=== PATIENT | male | born 1975 | race Hispanic/Latino ===

== ENCOUNTER 2017-03-28 08:51 | Emergency (ER) | payer OTHER ==
[2017-03-28] MEDS ORDERED: SODIUM CHLORIDE 0.9% 1000ML 1,000 ML IV ONE (09:04)
[2017-03-28] MEDS ORDERED: ONDANSETRON HCL 4 MG/2 ML VIAL ONE (09:04)
[2017-03-28 09:11] LABS: BASOPHILS % (AUTO) 0.3 % (0.0-5.0); MEAN CORPUSCULAR HEMOGLOBIN 30.3 pg (27.0-33.0); MEAN CORPUSCULAR HGB CONC 36.1 g/dL (32.0-36.0); MEAN CORPUSCULAR VOLUME 83.8 fL (79-99); MONOCYTES % (AUTO) 4.5 % (3.0-13.0); NEUTROPHILS % (AUTO) 88.2 % (40.0-77.0); NUCLEATED RED BLOOD CELLS 0.2 % (0.0-0.19); PLATELET COUNT (AUTO) 94 K/uL (130-400); RED BLOOD CELL COUNT(AUTO) 5.13 MIL/uL (4.50-6.20); WHITE BLOOD COUNT (AUTO) 6.8 K/uL (4.8-10.8)
[2017-03-28 09:21] LABS: CREATININE 1.1 mg/dL (0.5-1.5); POTASSIUM 3.2 mmol/L (3.5-5.1)
[2017-03-28 09:28] LABS: BILIRUBIN,DIRECT 1.2 mg/dL (0.0-0.3); BILIRUBIN,TOTAL 2.3 mg/dL (0.2-1.0); TOTAL PROTEIN, SERUM 6.6 g/dL (6.0-8.3)
[2017-03-28 09:35] LABS: B-TYPE NATRIURETIC PEPTIDE 18 pg/mL (0-100)
[2017-03-28 10:10] LABS: AMPHET/METH SCREEN,URINE NEGATIVE (NEGATIVE); BARBITURATE SCREEN, URINE NEGATIVE (NEGATIVE); BENZODIAZEPINES SCREEN,URINE NEGATIVE (NEGATIVE); CANNABINOID SCREEN,URINE NEGATIVE (NEGATIVE); COCAINE SCREEN,URINE NEGATIVE (NEGATIVE); OPIATE SCREEN,URINE NEGATIVE (NEGATIVE); PHENCYCLIDINE SCREEN,URINE NEGATIVE (NEGATIVE)
== END 2017-03-28 12:05 | disposition home or self-care (01) ==
LOC: EDH 08:51
DX: R55 Syncope and collapse (principal); E86.0 Dehydration; Z90.49 Acquired absence of other specified parts of digestive tract; Z87.891 Personal history of nicotine dependence
CPT/HCPCS: 36415; 70450; 71045; 80048; 80076; 80305; 82550; 82948; 83880; 84484; 85025; 87804 ×2; 93005; 96361; 96374; 99285; J2405; J7030

== ENCOUNTER 2019-02-22 02:35 | Emergency (ER) | payer OTHER | END 2019-02-22 02:59 | LOC: EDH 02:35 | DX: Z02.83 Encounter for blood-alcohol and blood-drug test (principal) ==

== ENCOUNTER 2022-03-31 18:12 | Emergency (ER) | payer OTHER ==
[~2022-03-31] VITALS: Ht 175.3 cm; Wt 106.6 kg
[2022-03-31] MEDS ORDERED: GABAPENTIN 300 MG CAPSULE PO SCH (21:30)
[2022-03-31] MEDS ORDERED: MORPHINE 2 MG SYG IM ONE (21:30)
[2022-03-31] MEDS ORDERED: DEXAMETHASONE SOD PHOSPHATE 4 MG/ML 1ML VIAL IM ONE (21:30)
[2022-03-31 21:42] VITALS: BP 154/86
[2022-03-31] MEDS ORDERED: IBUP-1493 PO (22:47)
[2022-03-31] MEDS ORDERED: GABA300C PO (22:47)
[2022-03-31] MEDS ORDERED: LIDOP TD (22:47)
[2022-03-31] MEDS ORDERED: CYCL-309 PO (22:47)
== END 2022-03-31 23:04 | disposition home or self-care (01) ==
LOC: EDH 18:12
DX: M54.42 Lumbago with sciatica, left side (principal); R20.0 Anesthesia of skin
CPT/HCPCS: 99284; 72100; 96372 ×2; J1100

== ENCOUNTER 2024-04-08 14:29 | Inpatient (IN) | payer OTHER ==
[~2024-04-08] VITALS: Ht 180.3 cm; Wt 108.9 kg
[~2024-04-08 14:29] MED LIST: CYCL-309 PO; GABA300C PO; IBUP-1493 PO; LIDOP TD
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
[2024-04-08 15:28] LABS: BASOPHILS # (AUTO) 0.04 K/uL (0.00-0.20); BASOPHILS % (AUTO) 0.5 % (0.0-5.0); EOSINOPHILS # (AUTO) 0.11 K/uL (0.00-0.70); EOSINOPHILS % (AUTO) 1.4 % (0.0-8.0); HEMATOCRIT 46.8 % (42-54); IMMATURE GRANULOCYTE ABSOLUTE 0.03 K/uL (0-1); LYMPHOCYTES # (AUTO) 1.3 K/uL (1.0-4.8); LYMPHOCYTES % (AUTO) 15.7 % (21.0-51.0); MEAN CORPUSCULAR HEMOGLOBIN 30.1 pg (27.0-33.0); MEAN CORPUSCULAR HGB CONC 35.5 g/dL (32.0-36.0); MEAN CORPUSCULAR VOLUME 84.8 fL (79-99); MONOCYTES # (AUTO) 0.7 K/uL (0.1-1.0); MONOCYTES % (AUTO) 8.5 % (3.0-13.0); NEUTROPHILS % (AUTO) 73.5 % (40.0-77.0); PLATELET COUNT (AUTO) 238 K/uL (130-400); RED BLOOD CELL COUNT(AUTO) 5.52 MIL/uL (4.50-6.20); RED CELL DISTRIBUTION WIDTH 12.7 % (11.0-15.5); WHITE BLOOD COUNT (AUTO) 8.1 K/uL (4.8-10.8)
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
[2024-04-08 15:36] LABS: POTASSIUM 3.6 mmol/L (3.5-5.1)
[2024-04-08] MEDS ORDERED: IOHEXOL 350 MG/ML 100ML INFUS..BTL IV ONE (15:39)
[2024-04-08] MEDS: traMADol /APAP 37.5MG/325MG TAB PO ONE (15:43)
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
--- NOTE | 2024-04-08 16:34 | NUR ---
PT UPGRADED TO TRAUMA LEVEL 2 PER MD DISCRETION
[2024-04-08] MEDS ORDERED: teTANUS immUNE globULIN 250 UNIT SYRINGE IM STA (16:47)
[2024-04-08] MEDS: ondanSETRON 4MG INJ IVP ONE (17:16)
[2024-04-08] MEDS: morPHINE 2 MG SYG IVP ONE (17:17)
[2024-04-08] MEDS: teTANUS/diphthERIA TOXOID [ADULT] 0.5 ML VIAL IM ONE (17:21)
[2024-04-08] MEDS ORDERED: acetaMINOPHEN 325 MG TAB PO PRN (18:00)
[2024-04-08] MEDS ORDERED: morPHINE 2 MG SYG IVP PRN (18:00)
[2024-04-08] MEDS ORDERED: traMADol HCL 50 MG TABLET PO PRN (18:00)
[2024-04-08] MEDS ORDERED: ketOROlac 15MG/ML VIAL (15MG/ML) IV PRN (18:00)
[2024-04-08] MEDS ORDERED: LISI10TA24 PO (18:37)
[2024-04-08] MEDS: LACTATED RINGERS 1000ML 1,000 ML IV SCH (18:45)
--- NOTE | 2024-04-08 19:00 | NUR ---
DR RAY AT BEDSIDE
--- NOTE | 2024-04-08 19:20 | NUR ---
TOOK OVER PATIENT AT THIS TIME
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
--- NOTE | 2024-04-08 19:57 | EKG ---
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
[2024-04-08] MEDS ORDERED: acetaMINOPHEN 500 MG TABLET PO PRN (20:00)
[2024-04-08] MEDS: PANTOPrazole 40 MG/VIAL IVP SCH (20:10)
[2024-04-08] MEDS: hydrALAZine 20MG/ML VIAL IV PRN (20:10)
[2024-04-08] MEDS: nifeDIPine ER 30 MG TAB PO SCH (20:10)
[2024-04-08 20:21] LABS: HEMOGLOBIN A1C 5.2 % (4.0-6.0)
--- NOTE | 2024-04-08 20:23 | NUR ---
DR. RAY NOTIFIED OF THE RIGHT WRIST ADDENDUM MADE BY RADIOLOGY. DR. RAY WILL SPEAK TO PATIENT AT BEDISIDE AND PLACE ORDERS
[2024-04-08] MEDS ORDERED: GLUCAGON 1MG KIT 1 MG ML IM PRN (20:30)
[2024-04-08] MEDS ORDERED: DEXTROSE 50%-WATER 50 ML DISP.SYRIN IV PRN (20:30)
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
[2024-04-08] MEDS ORDERED: amLODIPine 5 MG TAB PO SCH (21:00)
--- NOTE | 2024-04-08 21:00 | NUR ---
PATIENT HAD AN EPISODE OF CHEST PAIN S/P MEDICATION ADMINISTRATION, DR. RAY AT BEDSIDE, ORDERED A REPEAT EKG. NO NEW ORDERS AT THIS TIME, PATIENT CHEST PAIN HAS SUBSIDED, ALL VS WNL.
[2024-04-08 21:10] LABS: INR 1.01 (0.85-1.15); PROTHROMBIN TIME 11.3 SEC (9.6-11.6)
[2024-04-08 21:11] LABS: PARTIAL THROMBOPLASTIN TIME 27.7 SEC (26.3-35.5)
[2024-04-08 21:17] LABS: ALBUMIN 3.9 g/dL (3.5-5.0); BILIRUBIN,DIRECT 0.1 mg/dL (0.0-0.3); BILIRUBIN,TOTAL 1.3 mg/dL (0.2-1.0); TOTAL PROTEIN, SERUM 7.5 g/dL (6.0-8.3)
[2024-04-08 21:26] LABS: THYROID STIMULATING HORMONE 1.78 uIU/mL (0.36-3.74)
[2024-04-08 21:54] LABS: APPEARANCE,URINE CLEAR (CLEAR); BILIRUBIN,URINE NEGATIVE (NEGATIVE); COLOR,URINE LIGHT-YELLOW (YELLOW); GLUCOSE, URINE (UA) NEGATIVE (NEGATIVE); KETONES,URINE NEGATIVE (NEGATIVE); LEUKOCYTE ESTERASE ,URINE NEGATIVE Leu/uL (NEGATIVE); NITRATE,URINE NEGATIVE (NEGATIVE); OCCULT BLOOD,URINE NEGATIVE (NEGATIVE); PROTEIN,URINE 30 mg/dL (NEGATIVE); UROBILINOGEN,URINE 0.2 mg/dL (0.2-1.0)
[2024-04-08 21:55] LABS: ADD UA MICROSCOPIC YES
[2024-04-08 21:57] LABS: AMPHET/METH SCREEN,URINE NEGATIVE (NEGATIVE); BARBITURATE SCREEN, URINE NEGATIVE (NEGATIVE); BENZODIAZEPINES SCREEN,URINE NEGATIVE (NEGATIVE); CANNABINOID SCREEN,URINE NEGATIVE (NEGATIVE); COCAINE SCREEN,URINE NEGATIVE (NEGATIVE); OPIATE SCREEN,URINE POSITIVE (NEGATIVE); PHENCYCLIDINE SCREEN,URINE NEGATIVE (NEGATIVE)
[2024-04-08 21:58] LABS: MUCUS,URINE FEW LPF (None Seen); OTHER CASTS, URINE 1 /LPF (None Seen); RBC,URINE 0-1 /HPF (0-1); SQUAMOUS EPITHELIAL CELL,UR RARE /HPF (0-2); WBC,URINE 0-1 /HPF (0-1)
[2024-04-08] MEDS: Solu-medROL 40MG VIAL IVP ONE (22:18)
[2024-04-09 07:23] LABS: BASOPHILS # (AUTO) 0.01 K/uL (0.00-0.20); BASOPHILS % (AUTO) 0.2 % (0.0-5.0); HEMATOCRIT 47.7 % (42-54); IMMATURE GRANULOCYTE ABSOLUTE 0.03 K/uL (0-1); LYMPHOCYTES # (AUTO) 0.7 K/uL (1.0-4.8); MEAN CORPUSCULAR HEMOGLOBIN 30.1 pg (27.0-33.0); MEAN CORPUSCULAR HGB CONC 34.4 g/dL (32.0-36.0); MEAN CORPUSCULAR VOLUME 87.5 fL (79-99); MONOCYTES # (AUTO) 0.1 K/uL (0.1-1.0); MONOCYTES % (AUTO) 1.1 % (3.0-13.0); NEUTROPHILS # (AUTO) 5.4 K/uL (1.8-7.7); NEUTROPHILS % (AUTO) 87.2 % (40.0-77.0); PLATELET COUNT (AUTO) 227 K/uL (130-400); RED BLOOD CELL COUNT(AUTO) 5.45 MIL/uL (4.50-6.20); RED CELL DISTRIBUTION WIDTH 12.7 % (11.0-15.5); WHITE BLOOD COUNT (AUTO) 6.2 K/uL (4.8-10.8)
--- NOTE | 2024-04-09 07:34 | EKG ---
[facility] Test Date: 2024-04-08 Test Time: 20:46:53 Pat Name: EULALIA GONZALES Department: [facility] Room: ED 15 Gender: M Relief Master: [id number] : 1975 Requested By: LISA RAY Order Number: [id number] Reading MD: Jens Rogers Measurements Intervals [place] Rate: 96 P: 41 [place]: 132 QRS: 6 QRSD: 86 T: 152 QT: 368 QTc: 466 Interpretive Statements Sinus rhythm Probable left atrial enlargement Probable LVH with secondary repol abnrm Compared to ECG 04/08/2024 19:53:10 No significant changes Electronically Signed On 04-10-2024 11:52:19 [employer] CONSULTANT by Jens Rogers Please click the below link to view image of tracing.
[2024-04-09 07:40] LABS: ALBUMIN 3.8 g/dL (3.5-5.0); BILIRUBIN,TOTAL 1.3 mg/dL (0.2-1.0); POTASSIUM 3.9 mmol/L (3.5-5.1); TOTAL PROTEIN, SERUM 7.6 g/dL (6.0-8.3)
[2024-04-09] MEDS: LISINOPRIL 10 MG TABLET PO SCH (09:28)
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
--- NOTE | 2024-04-09 13:51 | NUR ---
DCP: HOME sw met with pt who works for [employer] [facility] [employer]. Lives t home with K[phone] and family. Pt states he is very active and independent, drives, completes ADLS on his own. Uses no DME or in home care services. PCP is Dr Hameed at [facility] and uses [facility] for rx. DCP is home Addendum: 04/09/24 at 1353 by ZHOU MCKINNEY SS Amended: Links added.
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
[2024-04-09 17:22] VITALS: BP 138/83; PULSE 70; RESP 16; TEMP 98.8; O2SAT 98
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
== END 2024-04-09 17:30 | disposition home or self-care (01) | DRG 563 ==
LOC: EDH 14:29 → EDHIP 14:30
PROVIDERS: ADMIT Student in an Organized Health Care Education/Training Program; ATTEND Student in an Organized Health Care Education/Training Program
DX: S62.101A Fracture of unspecified carpal bone, right wrist, initial encounter for closed fracture (principal); S36.528A Contusion of other part of colon, initial encounter; E66.9 Obesity, unspecified; I10 Essential (primary) hypertension; G47.33 Obstructive sleep apnea (adult) (pediatric); E16.2 Hypoglycemia, unspecified; V44.5XXA Car driver injured in collision with heavy transport vehicle or bus in traffic accident, initial encounter; Y93.89 Activity, other specified; Y92.89 Other specified places as the place of occurrence of the external cause; Y99.8 Other external cause status; Z79.899 Other long term (current) drug therapy; Z90.49 Acquired absence of other specified parts of digestive tract; Z88.8 Allergy status to other drugs, medicaments and biological substances; Z68.33 Body mass index [BMI] 33.0-33.9, adult
CPT/HCPCS: 36415; 70450; 71260; 73100; 73200; 74177; 80048; 80053; 80076; 80305; 81001; 82550; 82948; 83036; 83880; 84443; 84484; 85025; 85610; 85730; 90714; 93005; 93306; G0378; J0360; J2270; J2405; J2470; J2919; J7120; Q9967